=== PATIENT | male | born 1960 | race Caucasian/White ===

== ENCOUNTER 2016-06-22 05:41 | Inpatient (IN) | payer MEDICARE, OTHER ==
--- NOTE | ~2016-06-22 | CN ---
Consultation Report [facility] [address] [place]. [address] NAME: DEEP TENA : 60 STATUS : ADM IN PAT#: [id number] AGE: 56 ADM/REG DATE : 06/22/16 MR#: [id number] REPORT SERV DATE: 06/22/16 DICTATED BY: DARIEN DRAPER DATE: 06/22/16 REPORT STATUS : Draft TRANSCRIBED BY: MODL DATE: 06/22/16 DATE OF CONSULTATION: 06/22/2016 REASON FOR CONSULTATION: Right lower extremity cellulitis. HISTORY OF PRESENT ILLNESS: This pleasant 56-year-old gentleman has a long history of advanced bilateral lower extremity lymphedema. He is followed on an outpatient basis for his lymphedema therapy at [facility]. He was noted to have a blister in his right posterior leg that is now ruptured. He has cellulitis to the posterior leg. There was no bulla, crepitance, or significant slough. There is some biofilm secondary to transudate from his lymphedema. There is erythema without bulla or crepitance or abscess. His legs are less swollen from his last admission. He has a history of morbid obesity; atrial fibrillation, on anti-platelet therapy; hypertension; diabetes mellitus type 2; congestive heart failure with defibrillator, nicotine dependence for the last 35 years, and was admitted for the cellulitis. PAST MEDICAL HISTORY: As above. PAST SURGICAL HISTORY: As above. ALLERGIES: NO KNOWN DRUG ALLERGIES. FAMILY HISTORY: Positive for diabetes. SOCIAL HISTORY: The patient smokes a half pack of cigarettes and he has a 35 years. He denies alcohol or illicit drug usage. MEDICATIONS: Please see hospital chart. ALLERGIES: NO KNOWN DRUG OR LATEX ALLERGIES. REVIEW OF SYSTEMS: No headache, blurred vision, dizziness, chest pain, shortness of breath, cough, dyspnea on exertion, syncope, palpitations, jaundice, itching, bright red blood per rectum, melena, or change in the caliber of his stools. PHYSICAL EXAMINATION: GENERAL: Obese male, in no apparent distress. CARDIOVASCULAR: Regular rate and rhythm without murmur. RESPIRATORY: Clear to auscultation. ABDOMEN: Obese, soft, nondistended, nontender. BACK: No CVA tenderness. EXTREMITIES: The patient has bilateral lipodermatosclerosis. He has minimal cellulitis of the right posterior leg without bulla or crepitance. He has some superficial ulceration of the posterior right calf with biofilm and serous exudate. There is no bulla, crepitance, or Consultation Report [address] [place]. [address] NAME: DEEP TENA : 60 STATUS : ADM IN [facility]#: [id number] AGE: 56 ADM/REG DATE : 06/22/16 MR#: [id number] REPORT SERV DATE: 06/22/16 DICTATED BY: DARIEN DRAPER DATE: 06/22/16 REPORT STATUS : Draft TRANSCRIBED BY: ALLEN DATE: 06/22/16 lymphangitis. There is scaling bilaterally. LABORATORY DATA: White blood cell count 12,500. ASSESSMENT: 1. Right posterior leg cellulitis with chronic bilateral lymphedema. 2. Multiple medical problems as above. PLAN: Continue IV antibiotics and optimization of his medical care with leg elevation. We will order bilateral Unna boots for control of exudate with Aquacel Ag on the right posterior leg for addition of silver to the superficial slough. There is no surgical intervention needed at this time. Recommend continued outpatient therapy with Siskin for his lymphedema control in a patient with significant cardiac lower extremity edema as well. /ALLEN Darien Draper M.D. / [id number] CC: Ryan Singh Jr, MD
--- NOTE | ~2016-06-22 | HP ---
History And Physical [place] [address] [facility] [place]. [address] NAME: DEEP TENA : 60 STATUS : ADM IN [facility]#: [id number] AGE: 56 ADM/REG DATE : 06/22/16 MR#: [id number] REPORT SERV DATE: 06/22/16 DICTATED BY: JORDY ALMANZA DATE: 06/22/16 REPORT STATUS : Draft TRANSCRIBED BY: MODL DATE: 06/22/16 DATE OF ADMISSION: 06/22/2016 CHIEF COMPLAINT: Right leg infection. HISTORY OF PRESENT ILLNESS: The patient is a very pleasant 56-year-old white male. I have seen him in the past. I saw him on 06/02/2016, at that time, he had a malodorous infected right foot. He was ultimately discharged with a diagnosis of lymphedema and cellulitis. Dr. Carolina did not think he needed operative intervention and recommended that he see the [facility] which he has an appointment with today. He has also been receiving home health wound care. He states about three days ago, he developed a new area of crusting redness drainage along the right posterior tibia. He states it became "quite malodorous" and thought he should present to the ER. He has been taking all medications as prescribed. Again home health has been coming daily to help with his wounds but it continued to progress. He has no other real complaints today. PAST MEDICAL HISTORY: 1. Lymphedema. 2. Previous recurrent cellulitis related to lymphedema. 3. Morbid obesity. 4. Atrial fibrillation, on chronic anticoagulation. 5. Hypertension. 6. Type 2 diabetes mellitus. 7. CHF. 8. History of defibrillator. ALLERGIES: NO KNOWN DRUG ALLERGIES. SURGICAL HISTORY: He has had a defibrillator placement. FAMILY HISTORY: Positive for diabetes in his father and there is little known about his mother. SOCIAL HISTORY: Currently smokes about a half pack per day, he has for the last 35+ years. No alcohol. He lives with his son but he recently moved out this week. HOME MEDICATIONS: Reviewed and attached. REVIEW OF SYSTEMS: Full 10-point review of systems obtained. Pertinent positives are already mentioned in the HPI. PHYSICAL EXAMINATION: VITAL SIGNS: Blood pressure 131/78, sats 97%, temperature 97.6, pulse 78, and respiratory rate 20. GENERAL: Morbidly obese white male, in no apparent distress. History And Physical [place] [address] [place]. [address] NAME: DEEP TENA : 60 STATUS : ADM IN PAT#: [id number] AGE: 56 ADM/REG DATE : 06/22/16 MR#: [id number] REPORT SERV DATE: 06/22/16 DICTATED BY: JORDY ALMANZA DATE: 06/22/16 REPORT STATUS : Draft TRANSCRIBED BY: ALLEN DATE: 06/22/16 HEENT: Normocephalic, atraumatic. Throat is clear. NECK: Supple. HEART: Regular rate and rhythm. LUNGS: Grossly clear. ABDOMEN: Soft, nontender, and nondistended. EXTREMITIES: Extensive lymphedematous changes bilaterally with swelling. I cannot palpate his pulses due to the extensive swelling and lymphedema but I did use a Doppler and both pulses are easily found on bilateral feet. He still has a sort of almost ulcerated appearance of the top of the right foot which is unchanged. He has a new weeping scaling macerated area on the posterior tibia on the right. Both of his legs are erythematous and red and warm to the touch. There is scaling bilaterally. LAB AND X-RAY STUDIES: His last wound culture revealed multiple species, he had Pseudomonas Enterococcus faecalis and Stenotrophomonas maltophilia. Labs today show a white count of 12.5, otherwise a normal CBC. Electrolyte panel is essentially normal. Lactate is normal and his urinalysis is normal. ASSESSMENT/PLAN: 1. Continued lymphedema with cellulitis, mostly on the right, certainly looks worse today than it did. I am going to place him back on IV antibiotics. The Stenotrophomonas was a multidrug resistant organism. I do not have a good antibiotic that he can really use besides the Bactrim. I am going to try the Zosyn and vancomycin. Some local wound care. We will send off another culture today. We will have Dr. Apodaca see him again in consultation. Unless he gets some aggressive care of this lymphedema, I suspect he will end up losing both of his legs eventually. He is already on diuretics. We will continue those for now. 2. Diabetes mellitus. Continue metformin and add level 1 sliding scale. 3. History of atrial fibrillation, on Xarelto, continue, currently rate controlled. 4. History of defibrillator. Obtain records regarding his cardiac history. 5. History of congestive heart failure, again details unknown. 6. Hypertension. Continue Coreg. 7. Deep venous thrombosis prophylaxis. He is already fully anticoagulated. 8. Disposition. Pending above aforementioned plan and workup. ELISABET/ALLEN Jordy Almanza M.D. / [id number] CC: Ryan Singh Jr, MD
--- NOTE | ~2016-06-22 | DS ---
Discharge Summary [facility] [address] [place]. [address] NAME: DEEP TENA : 60 STATUS : DIS IN PAT#: [id number] AGE: 56 ADM/REG DATE : 06/22/16 MR#: [id number] REPORT SERV DATE: 06/28/16 DICTATED BY: PETE DAN DATE: 06/27/16 REPORT STATUS : Draft TRANSCRIBED BY: MODL DATE: 06/27/16 ADMISSION DATE: 06/22/2016 DISCHARGE DATE: 06/26/2016 CHIEF COMPLAINT: Right leg infection. REASON FOR ADMISSION: This is a 56-year-old male who had a malodorous infected right foot back on 06/02/2016. He is being followed outpatient by Dr. Ruboi, [facility] Care [facility]. Three days prior to admission, he developed a new area of crusting redness drainage along the right posterior tibia, became quite malodorous and thought he should present to the ER. On exam, he was found to have extensive lymphedematous changes of bilateral swelling. He had weeping, scaling macerated area along the posterior tibia on the right, and bilaterally, his both legs were erythematous and warm to touch. DISCHARGE DIAGNOSES: 1. Right lower extremity cellulitis. 2. Severe chronic bilateral lower extremity lymphedema with chronic wounds. 3. Diabetes type 2. 4. History of atrial fibrillation. 5. Hypertension. 6. History of CHF, status post AICD. HOSPITAL COURSE: The patient was admitted and started on IV antibiotics. He was started on IV Zosyn and IV vancomycin and Dr. Smith saw the patient while here at the hospital along with Dr. Dalton from Infectious Disease. They would ultimately change the patient over to IV Ancef and oral Levaquin. The patient's wounds wound grow out Stenotrophomonas, Pseudomonas, Enterococcus faecalis back in 06/02/2016, but blood cultures were all negative during this stay and no wound culture was checked at this time round. The patient was ultimately changed over to IV Ancef and oral Levaquin and was recommended by Dr. Dalton to remain on that combination for eight more days postoperatively. The patient was diuresed about 6 L during hospital stay, and he was arranged for rehab at [facility]. He is to transfer there for rehab and then do lymphedema wraps, which he will follow up at [facility] outpatient, to continue therapy there and Dr. Smith, [facility]. DISCHARGE CONDITION: Stable. DISCHARGE MEDICATIONS: 1. Metformin 500 mg p.o. daily. 2. Xarelto 20 mg p.o. daily. 3. Potassium chloride 20 mg p.o. b.i.d. 4. Lisinopril 10 mg p.o. daily. 5. Levaquin 750 mg p.o. daily x8 more days. 6. Insulin sliding scale. 7. Hydrochlorothiazide 12.5 mg p.o. daily. 8. Furosemide 80 mg p.o. b.i.d. 9. Digoxin 0.125 mg p.o. daily. Discharge Summary [address] [address] NAME: DEEP TENA : 60 STATUS : DIS IN PAT#: [id number] AGE: 56 ADM/REG DATE : 06/22/16 MR#: [id number] REPORT SERV DATE: 06/28/16 DICTATED BY: PETE DAN DATE: 06/27/16 REPORT STATUS : Draft TRANSCRIBED BY: ALLEN DATE: 06/27/16 10.Ancef 2 g IV q.8 hours x8 more days. 11.Carvedilol 3.125 mg p.o. b.i.d. DISCHARGE PLAN: The patient is discharged to [facility] [place]. Follow up outpatient at [facility] for lymphedema wraps and follow up with Dr. Smith and primary care. JOZEF/MODL Pete Dan APN / [id number] CC: Umm Villafana CRYSTAL Daniel Heithold, M.D. Hal Hill, M.D. [facility]
--- NOTE | ~2016-06-22 | CN ---
Consultation Report [facility] [address] [place]. [address] NAME: DEEP TENA : 60 STATUS : ADM IN [facility]#: [id number] AGE: 56 ADM/REG DATE : 06/22/16 MR#: [id number] REPORT SERV DATE: 06/24/16 DICTATED BY: RENEA DALTON DATE: 06/24/16 REPORT STATUS : Draft TRANSCRIBED BY: MODL DATE: 06/24/16 INFECTIOUS DISEASE CONSULTATION DATE OF CONSULTATION: 06/24/2016 REASON FOR CONSULTATION: Cellulitis. HISTORY OF PRESENT ILLNESS: This is a 56-year-old man with a past medical history notable for obesity and severe chronic lymphedema of his lower extremities. His more recent history includes an admission to [facility] for cellulitis back in January followed by a prolonged stay at [facility] where he received IV antibiotics and aggressive compression lymphedema treatment. He was discharged around [place] timeframe with a plan for ongoing compression treatment at home with home health. He says, however, that the home health nurse did a very poor job with the wraps, and fairly quickly, he had again developed the same severe edema. The patient was admitted to [facility] on 06/02/2016 with a superficial wound on the top of his right foot with associated redness and swelling and evidence of cellulitis. He was treated with vancomycin and Zosyn. A poor quality x-ray with just one lateral image suggested the possibility of a lucency in the head of the fifth metatarsal, but after review of this by Surgery, it was not felt that this was likely. He had no associated wound in that area. The patient was discharged on 06/05/2016 on oral Bactrim. He says he took one tablet a day for seven days, not twice a day. His wound culture from that admission as outlined below. The patient says that a few days prior to his readmission on 06/22/2016, he developed worsening of thin, yellowish-tinged drainage and swelling from some new superficial wounds on his right calf with associated surrounding redness and pain. He was readmitted on 06/22/2016, and after blood cultures were obtained, he was started on vancomycin and Zosyn again. His admission white blood cell count was 12.5. Procalcitonin was less than 0.05. The patient was assessed by the Wound Care Team yesterday and had Unna boots applied to both lower extremities. He has had no fever here. His white blood cell count today is 11.0. Blood cultures are negative to date. PAST MEDICAL HISTORY: In addition to the above is notable for atrial fibrillation, hypertension, diabetes, and congestive heart failure along with a history of a defibrillator. ALLERGIES: NO KNOWN DRUG ALLERGIES. OUTPATIENT MEDICATIONS: Included Coreg, digoxin, Lasix, Prinzide, metformin, potassium chloride, and Xarelto. SOCIAL HISTORY: He lives alone. He does smoke, nondrinker. FAMILY HISTORY: Notable for diabetes in his father. REVIEW OF SYSTEMS: Consultation Report [place] [id number] [place]. [address] NAME: DEEP TENA : 60 STATUS : ADM IN [facility]#: [id number] AGE: 56 ADM/REG DATE : 06/22/16 MR#: [id number] REPORT SERV DATE: 06/24/16 DICTATED BY: RENEA DALTON DATE: 06/24/16 REPORT STATUS : Draft TRANSCRIBED BY: ALLEN DATE: 06/24/16 Denies any nausea, vomiting, chest pain, shortness of breath, or diarrhea. PHYSICAL EXAMINATION: VITAL SIGNS: This is a 180-kg man. He is afebrile. Blood pressure 156/68, pulse 84, and respiratory rate 14. GENERAL: He is alert, no acute distress. HEAD AND NECK: Exam is unremarkable. LUNGS: Clear to auscultation. CARDIAC: Without murmur, gallop, or rub. ABDOMEN: Obese and soft. EXTREMITIES: The patient has severe chronic lymphedema changes of his lower legs and feet. The Unna boots were all removed and dressings are removed. The right lower leg has increased warmth and erythema involving the medial and posterior aspect compared to the left lower leg. There are very superficial wounds of the right calf with a fair amount of drainage on the saturated Mepilex dressings that were covering them since the dressing was applied yesterday. There are no areas of fluctuance that I can appreciate. The area is not especially tender. The foot also has marked edema similar to the left foot with slight erythema but not a lot of warmth. He has a peripheral IV in his right forearm. LABORATORY STUDIES: White blood cell count as outlined above, hemoglobin 11.8, and platelets 188. Creatinine 0.98. On 06/02/2016, albumin was 3.3. Culture data as noted. The right foot wound culture from 06/02/2016 grew abundant Pseudomonas, Stenotrophomonas, and Enterococcus. IMPRESSION: Cellulitis of the right lower extremity in a patient with severe chronic lymphedema. While this cellulitis is not severe, I believe he needs reasonably aggressive antibiotic therapy given his size and the severity of his lymphedema. I would not be confident in an oral antibiotic regimen to really take care of this adequately. PLAN: We will switch antibiotics to IV Ancef and oral Levaquin and plan about 10 more days of therapy. I suspect this is a streptococcal infection, but given the wounds, I think we need to cover more broadly. Since the MRSA did not grow from the wound culture earlier this month, I doubt it is the pathogen here. We will also order a PICC line. UDAY/ALLEN Renea Dalton M.D. / [id number] CC: Ryan Singh Jr, MD Consultation Report [address] [address] NAME: DEEP TENA : 60 STATUS : ADM IN [facility]#: [id number] AGE: 56 ADM/REG DATE : 06/22/16 MR#: [id number] REPORT SERV DATE: 06/24/16 DICTATED BY: RENEA DALTON DATE: 06/24/16 REPORT STATUS : Draft TRANSCRIBED BY: ALLEN DATE: 06/24/16 HERMANN FINLEY
[2016-06-22 02:52] LABS: BASOPHILS 0.2 %; BASOPHILS ABSOLUTE 0.03 10/3/uL (0.0-0.16); EOSINOPHILS 1.7 %; EOSINOPHILS ABSOLUTE 0.21 10/3/uL (0.0-0.53); HEMOGLOBIN 13.8 g/dL (13.6-17.8); IMMATURE GRANULOCYTES 0.5 %; IMMATURE GRANULOCYTES ABSOLUTE 0.06 10/3/uL (0.0-0.11); LYMPHOCYTES 17.7 %; LYMPHOCYTES ABSOLUTE 2.21 10/3/uL (0.67-4.30); MEAN CORPUS HGB CONC 32.9 g/dL (32.0-36.0); MEAN CORPUSCULAR HEMOGLOB 30.1 pg (26.0-34.0); MEAN CORPUSCULAR VOLUME 91.7 fL (80-100); MEAN PLATELET VOLUME 9.1 fL (9.2-13.0); MONOCYTES 6.7 %; MONOCYTES ABSOLUTE 0.84 10/3/uL (0.21-1.20); NEUTROPHILS 73.2 %; NEUTROPHILS ABSOLUTE 9.13 10/3/uL (2.02-8.40); PLATELET COUNT 219 10/3/uL (150-400); RBC DISTRIBUTION WIDTH 13.7 % (12.0-16.0); RED CELL COUNT 4.58 10/6/uL (4.7-6.1); WHITE BLOOD CELLS 12.5 10/3/uL (4.5-10.5)
[2016-06-22 02:54] LABS: ER CBC TAT 0 Hrs 05 Mins; MANUAL DIFF NO %
[2016-06-22 03:08] LABS: BUN (BLOOD UREA NITROGEN) 15 MG/DL (6-23); CALCIUM, SERUM 9.2 MG/DL (8.5-10.4); CHLORIDE, SERUM 106 MMOL/L (96-112); CO2 (CARBON DIOXIDE) 29 MMOL/L (24-34); CREATININE 0.97 MG/DL (0.70-1.30); DIRECT BILIRUBIN 0.2 MG/DL (0.0-0.4); GFR AFRICAN AMERICAN 101 ML/MIN (>=60); GFR NON AFRICAN AMERICAN 87 ML/MIN (>=60); GLUCOSE, SERUM 129 MG/DL (60-99); INDIRECT BILIRUBIN(NOT ORDER) 0.2 MG/DL (0.1-0.9); SODIUM, SERUM 144 MMOL/L (135-148); TOTAL BILIRUBIN 0.4 MG/DL (0-1.2)
[2016-06-22 03:10] LABS: LACTATE 1.7 MMOL/L (0.3-2.4)
[~2016-06-22 05:41] MED LIST: BACDS PO; COREG3 PO; GLUCPH PO; KLOR-CON M2020 MEQ PO; L80 PO; LAN125 PO; LEVAQUIN750 MG PO; XARELTO20 MG PO
[2016-06-22 06:01] LABS: ASCORBIC ACID (UR NOT ORDER) NEG (NEG); BILIRUBIN, URINE NEGATIVE (NEG); ER URINALYSIS TAT 0 Hrs 09 Mins; KETONE, URINE NEGATIVE (NEG); LEUKOCYTE ESTERASE(NOT OR NEG (NEG); NITRITE (URINE) NEG (NEG); WBC (NOT ORDERED) (RFLEX) 2 (0-5)
[2016-06-22] MEDS ORDERED: PRINZIDE1 TAB PO (07:58)
[2016-06-22 17:05] LABS: PROCALCITONIN <0.05 ng/mL (<0.5)
[2016-06-24 04:25] LABS: BASOPHILS 0.3 %; BASOPHILS ABSOLUTE 0.03 10/3/uL (0.0-0.16); EOSINOPHILS 1.8 %; HEMOGLOBIN 11.8 g/dL (13.6-17.8); IMMATURE GRANULOCYTES 0.4 %; IMMATURE GRANULOCYTES ABSOLUTE 0.04 10/3/uL (0.0-0.11); LYMPHOCYTES 15.8 %; LYMPHOCYTES ABSOLUTE 1.74 10/3/uL (0.67-4.30); MEAN CORPUS HGB CONC 32.2 g/dL (32.0-36.0); MEAN CORPUSCULAR HEMOGLOB 29.4 pg (26.0-34.0); MEAN CORPUSCULAR VOLUME 91.3 fL (80-100); MEAN PLATELET VOLUME 9.1 fL (9.2-13.0); MONOCYTES 8.5 %; MONOCYTES ABSOLUTE 0.94 10/3/uL (0.21-1.20); NEUTROPHILS 73.2 %; NEUTROPHILS ABSOLUTE 8.09 10/3/uL (2.02-8.40); PLATELET COUNT 188 10/3/uL (150-400); RBC DISTRIBUTION WIDTH 13.6 % (12.0-16.0); RED CELL COUNT 4.02 10/6/uL (4.7-6.1)
[2016-06-24 04:28] LABS: HEMATOCRIT 36.7 % (40.0-51.0); MANUAL DIFF NO %
[2016-06-24 04:37] LABS: BUN (BLOOD UREA NITROGEN) 13 MG/DL (6-23); CALCIUM, SERUM 8.4 MG/DL (8.5-10.4); CHLORIDE, SERUM 105 MMOL/L (96-112); CO2 (CARBON DIOXIDE) 30 MMOL/L (24-34); CREATININE 0.98 MG/DL (0.70-1.30); GFR AFRICAN AMERICAN 99 ML/MIN (>=60); GFR NON AFRICAN AMERICAN 86 ML/MIN (>=60); GLUCOSE, SERUM 116 MG/DL (60-99); POTASSIUM, SERUM 3.5 MMOL/L (3.5-5.3); SODIUM, SERUM 142 MMOL/L (135-148)
== END 2016-06-26 18:35 | DRG 603 ==
LOC: ER 05:41 → ER/OF 11:36 → CDU1 12:15 → 4SO 06-25 11:58
PROVIDERS: Internal Medicine; Specialist
PROC: B5181ZA Fluoroscopy of Superior Vena Cava using Low Osmolar Contrast, Guidance (ICD-10-PCS; principal; 2016-06-24)
PROC: 02HV33Z Insertion of Infusion Device into Superior Vena Cava, Percutaneous Approach (ICD-10-PCS; principal; 2016-06-24)
DX: L03.115 Cellulitis of right lower limb (principal); I11.0 Hypertensive heart disease with heart failure; I50.9 Heart failure, unspecified; I83.208 Varicose veins of unspecified lower extremity with both ulcer of other part of lower extremity and inflammation; L97.811 Non-pressure chronic ulcer of other part of right lower leg limited to breakdown of skin; L97.821 Non-pressure chronic ulcer of other part of left lower leg limited to breakdown of skin; Z68.43 Body mass index [BMI] 50.0-59.9, adult; I89.0 Lymphedema, not elsewhere classified; E66.01 Morbid (severe) obesity due to excess calories; E11.65 Type 2 diabetes mellitus with hyperglycemia; I48.2 Chronic atrial fibrillation; Z95.810 Presence of automatic (implantable) cardiac defibrillator; F17.210 Nicotine dependence, cigarettes, uncomplicated; Z79.84 Long term (current) use of oral hypoglycemic drugs; Z79.01 Long term (current) use of anticoagulants; B96.5 Pseudomonas (aeruginosa) (mallei) (pseudomallei) as the cause of diseases classified elsewhere; B95.2 Enterococcus as the cause of diseases classified elsewhere; B96.89 Other specified bacterial agents as the cause of diseases classified elsewhere; Z16.24 Resistance to multiple antibiotics
CPT/HCPCS: 36569; 80048; 81001; 82247; 82248; 82962; 83605; 84145; 85025; 87040; 96374; 97161-GP; 99285; A9270-GY; C1751; G8978-CI-GP; G8979-CI-GP; G8980-CI-GP; J0690; J2543; J3370